=== PATIENT | female | born 1990 | race Caucasian/White ===

== ENCOUNTER 2024-07-18 13:55 | Emergency (ER) | payer BC ==
[2024-07-18] MEDS ORDERED: Acetaminophen 325 MG TAB ONE (14:24)
[2024-07-18] MEDS ORDERED: Ondansetron ODT 4 MG TAB ONE (14:24)
[2024-07-18 14:55] LABS: #Basophils 0.04 10x3/uL (0.0-0.2); #Eosinophils 0.05 10x3/uL (0.0-0.5); #Neutrophils 4.67 10x3/uL (1.5-8.4); %Basophils 0.6 % (0.0-2.0); %Eosinophils 0.7 % (0.0-6.0); %Lymphocytes 20.1 % (18.0-47.0); %Monocytes 10.2 % (0.0-10.0); Hemoglobin 9.9 g/dL (12.0-15.5); Mean Corpuscular HGB CONC 30.9 g/dL (32.0-36.0); Mean Corpuscular Hemoglobin 25.1 pg (27.0-33.0); Mean Corpuscular Volume 81.2 fL (81.6-98.3); Platelet Count 317 10x3/uL (150-450); RBC Distribution Width 15.3 % (11.5-14.5); Red Blood Cell (RBC) Count 3.94 10x6/uL (3.90-5.03); White Blood Cell (WBC) Count 6.87 10x3/uL (3.5-10.5)
[2024-07-18 15:01] LABS: Bilirubin Neg (Negative); Blood, Urine Negative (Negative); Glucose, Urine (Dipstick) Normal (Negative); Ketone, Urine Negative (Negative); Leukocyte Negative (Negative); Nitrite Negative (Negative); Protein, Urine (Dipstick) 15 mg/dl (Neg-Trace); Urobilinogen Normal mg/dL (Less than 2)
[2024-07-18 15:19] LABS: ALT (SGPT) 20 U/L (8-55); AST (SGOT) 18 U/L (5-34); Albumin 3.3 g/dL (3.5-5.0); Alkaline Phosphatase 82 U/L (40-110); Anion Gap 11 mmol/L (10-20); BUN (Urea Nitrogen) 12 mg/dL (7.0-18.7); Bilirubin, Total 0.2 mg/dL (0.2-1.2); Calc. Creatinine Clearance 0 mL/min (70-130); Calcium 8.7 mg/dL (7.8-10.44); Carbon Dioxide 21 mmol/L (22-29); Chloride 108 mmol/L (98-107); Estimated GFR 120; Globulin 3.3 g/dL (2.4-3.5); Glucose 73 mg/dL (70-105); Lipase 70 U/L (8-78); Potassium 3.3 mmol/L (3.5-5.1); Protein, Total 6.6 g/dL (6.0-8.3); Sodium 137 mmol/L (136-145)
[2024-07-18 15:22] LABS: Clarity Clear (Clear)
[2024-07-18] MEDS ORDERED: Metoclopramide 10 MG/10 ML UDCUP ONE (15:46)
[2024-07-18 15:47] LABS: Bacteria/HPF Rare-Few HPF (None Seen); CAUTI Indications for Culture Pregnancy; RBC/HPF None Seen HPF (0-3); Squamous Epithelial 0-3 HPF (0-3); WBC/HPF None Seen HPF (0-3)
[2024-07-18 15:48] LABS: Urine Culture Reflex Yes Yes
== END 2024-07-18 16:24 | disposition home or self-care (01) ==
LOC: CSHERS 13:55
DX: O21.9 Vomiting of pregnancy, unspecified (principal); E03.9 Hypothyroidism, unspecified; Z79.890 Hormone replacement therapy; Z3A.01 Less than 8 weeks gestation of pregnancy
CPT/HCPCS: 76856; 80053; 81001; 83690; 84702; 85025; 86900; 86901; 87086; Q0162

== ENCOUNTER 2025-01-24 21:31 | Day surgery (SDC) | payer BC ==
[2025-01-24 21:55] VITALS: BMI 31.1
[2025-01-24] MEDS ORDERED: hydrALAZINE 20 MG/ML VIAL SLOW IVP PRN (22:11)
[2025-01-24 22:36] LABS: Fetal Membranes Rupture No Membranes Rupture (No Rupture)
== END 2025-01-24 23:35 | disposition home or self-care (01) ==
LOC: CSHLD/OP 21:31
PROVIDERS: ATTEND Obstetrics & Gynecology
DX: O23.593 Infection of other part of genital tract in pregnancy, third trimester (principal); N89.8 Other specified noninflammatory disorders of vagina; Z03.71 Encounter for suspected problem with amniotic cavity and membrane ruled out; O99.013 Anemia complicating pregnancy, third trimester; O32.1XX0 Maternal care for breech presentation, not applicable or unspecified; Z3A.36 36 weeks gestation of pregnancy; Z98.84 Bariatric surgery status; Z88.0 Allergy status to penicillin; Z79.899 Other long term (current) drug therapy
CPT/HCPCS: 84112; 87480; 87510; 87660; 99285

== ENCOUNTER 2025-02-22 19:00 | Inpatient (IN) | payer BC ==
[2025-02-22 20:13] VITALS: BMI 30.2
[2025-02-22] MEDS ORDERED: hydrALAZINE 20 MG/ML VIAL SLOW IVP PRN (21:30)
[2025-02-22] MEDS ORDERED: Oxytocin 30 units/NS 500 ML 500 ML IV SCH ×2 (21:30)
[2025-02-22] MEDS ORDERED: Ondansetron PF 4 MG/2 ML Vial IVP PRN (21:30)
[2025-02-22] MEDS ORDERED: Lidocaine 1% (PF) 30 ML VIAL SC PRN (21:30)
[2025-02-22] MEDS ORDERED: Tranexamic Acid 1,000 MG/10 ML VIAL IVP PRN (21:30)
[2025-02-22] MEDS ORDERED: Ibuprofen 800 MG TAB PO PRN (21:30)
[2025-02-22] MEDS ORDERED: HYDROcodone/Acetaminophen 5/325 mg Tablet PO PRN ×2 (21:30)
[2025-02-22] MEDS ORDERED: Methylergonovine 0.2 MG/ML VIAL IM PRN (21:30)
[2025-02-22 21:44] LABS: Hematocrit 34.9 % (34.9-44.5); Hemoglobin 11.4 g/dL (12.0-15.5); Mean Corpuscular Hemoglobin 28.0 pg (27.0-33.0); Mean Corpuscular Volume 85.7 fL (81.6-98.3); Platelet Count 226 10x3/uL (150-450); Red Blood Cell (RBC) Count 4.07 10x6/uL (3.90-5.03); White Blood Cell (WBC) Count 9.33 10x3/uL (3.5-10.5)
[2025-02-22 22:12] LABS: Syphilis Antibody Index 0.07 S/CO (<1.00 Non-Reactive)
[2025-02-22 22:13] LABS: Hep B Surf Ag - L&D Non-Reactive S/CO (NonReactive)
[2025-02-23] MEDS: Dinoprostone 10 MG Suppository VAG SCH (13:01)
[2025-02-23] MEDS ORDERED: HYDROcodone/Acetaminophen 10/325 mg Tablet PO PRN (15:12)
[2025-02-23] MEDS: Acetaminophen 325 MG TAB PO PRN (19:37)
[2025-02-23] MEDS ORDERED: Clindamycin/D5W 900 MG in Premix 1 BAG IVPB SCH (23:45)
[2025-02-23] MEDS ORDERED: Bicitra 30 ML UDCUP PO PRN (23:50)
[2025-02-24] MEDS ORDERED: Azithromycin 500 MG in Sodium Chloride 0.9% 250 ML 250 ML IVPB SCH (00:15)
[2025-02-24] MEDS: Famotidine/PF 20 mg/2ml Vial SLOW IVP PRN (00:18)
[2025-02-24] MEDS ORDERED: Gentamicin Sulfate 120 MG in Premix 1 BAG IVPB SCH (00:30)
[2025-02-24] MEDS ORDERED: diphenhydrAMINE 50 MG/ML VIAL IVP PRN (01:38)
[2025-02-24] MEDS ORDERED: Meperidine HCl/PF 25 MG (1 mL) VIAL SLOW IVP PRN (01:38)
[2025-02-24] MEDS ORDERED: Ondansetron PF 4 MG/2 ML Vial IVP PRN ×2 (01:38)
[2025-02-24] MEDS ORDERED: Ketorolac Tromethamine 30 MG (1 mL) VIAL IVP SCH (01:45)
[2025-02-24] MEDS ORDERED: Communication Order-Pharmacy FS SCH (01:45)
[2025-02-24] MEDS ORDERED: hydrALAZINE 20 MG/ML VIAL SLOW IVP PRN (01:47)
[2025-02-24] MEDS ORDERED: Simethicone Chewable 80 MG TAB PO PRN (01:47)
[2025-02-24] MEDS ORDERED: Methylergonovine 0.2 MG/ML VIAL IM PRN (01:47)
[2025-02-24] MEDS ORDERED: Lanolin Ointment 7 GM TUBE TOP PRN (01:47)
[2025-02-24] MEDS ORDERED: Oxytocin 30 units/NS 500 ML 500 ML IV SCH (02:00)
[2025-02-24] MEDS: CEFAZOLIN 2 GM VIAL ONE (04:18)
[2025-02-24] MEDS: Dexamethasone 10 MG/ML VIAL ONE (04:18)
[2025-02-24] MEDS: Azithromycin 500 MG VIAL ONE (04:18)
[2025-02-24] MEDS: Ondansetron PF 4 MG/2 ML Vial ONE (04:18)
[2025-02-24] MEDS: Oxytocin 10 UNITS/ML VIAL ONE ×2 (04:18)
[2025-02-24] MEDS: Ketorolac Tromethamine 30 MG (1 mL) VIAL IVP SCH (04:19)
[2025-02-24] MEDS: Ketorolac Tromethamine 30 MG (1 mL) VIAL ONE (04:19)
[2025-02-24] MEDS: Boostrix 0.5 ML (Tdap) VIAL (>/=7 yrs of age) IM ONE (04:31)
[2025-02-24] MEDS: Ferrous Sulfate 325 MG TAB PO SCH (07:31)
[2025-02-24] MEDS ORDERED: Acetaminophen 325 MG TAB PO PRN (15:00)
[2025-02-24] MEDS ORDERED: HYDROcodone/Acetaminophen 10/325 mg Tablet PO PRN ×2 (15:00)
[2025-02-25 03:24] LABS: Hematocrit 31.8 % (34.9-44.5); Hemoglobin 10.2 g/dL (12.0-15.5); Mean Corpuscular Hemoglobin 28.3 pg (27.0-33.0); Mean Corpuscular Volume 88.1 fL (81.6-98.3); Platelet Count 174 10x3/uL (150-450); Red Blood Cell (RBC) Count 3.61 10x6/uL (3.90-5.03); White Blood Cell (WBC) Count 9.81 10x3/uL (3.5-10.5)
[2025-02-25] MEDS: Ibuprofen 800 MG TAB PO SCH (09:35)
[2025-02-25] MEDS: Acetaminophen 325 MG TAB PO PRN (12:49)
[2025-02-27 07:45] VITALS: BP 94/53; TEMP 98.1
== END 2025-02-27 12:45 | disposition home or self-care (01) | DRG 788 ==
LOC: CSHLD 19:42 → CSHPP 02-24 03:45
PROVIDERS: ADMIT Obstetrics & Gynecology; ATTEND Obstetrics & Gynecology
DX: O62.1 Secondary uterine inertia (principal); O99.284 Endocrine, nutritional and metabolic diseases complicating childbirth; E03.9 Hypothyroidism, unspecified; Z3A.39 39 weeks gestation of pregnancy; Z37.0 Single live birth; O99.02 Anemia complicating childbirth; Z98.84 Bariatric surgery status; O99.344 Other mental disorders complicating childbirth; F41.9 Anxiety disorder, unspecified; Z88.0 Allergy status to penicillin
CPT/HCPCS: 36415; 51702; 85027; 86780; 86850; 86900; 86901; 87340; 93306; J1100; J1308; J1885; J2274; J2405; J2550; J2590; J3010; J3105; J7120